=== PATIENT | male | born 2000 | race Caucasian/White ===

== ENCOUNTER 2024-11-23 10:15 | Emergency (ER) | payer MEDICAID ==
[~2024-11-23] VITALS: Ht 177.8 cm; Wt 96.0 kg
[2024-11-23 10:19] VITALS: O2SAT 99
[2024-11-23] MEDS: SODIUM CHLORIDE 0.9% 1,000 ML IV ONE (10:46)
[2024-11-23] MEDS: LORAZEPAM 2MG/ML UD SYRINGE IV NR (10:47)
[2024-11-23] MEDS: LORAZEPAM 2MG/ML INJ IV ONE (10:48)
[2024-11-23 10:51] LABS: BASOPHILS % 0.3 % (0.0-2.0); EOSINOPHILS % 0.1 % (0.0-5.0); HEMATOCRIT. 46.9 % (42.0-52.0); LYMPHOCYTES % 17.3 % (20.0-50.0); MEAN CORPUSCULAR HEMOGLOBIN 29.9 pg (28.0-32.0); MEAN CORPUSCULAR VOLUME 87.9 fL (80.0-94.0); MEAN PLATELET VOLUME 7.4 fl (7.4-10.4); MONOCYTES % 10.5 % (2.0-8.0); NEUTROPHILS % 71.8 % (40.0-76.0); PLATELET 272 x1000/uL (130-400); RED BLOOD CELL COUNT 5.34 mill/uL (4.7-6.1); RED CELL DISTRIBUTION WIDTH 14.5 % (11.6-14.6)
[2024-11-23 11:05] LABS: CHLORIDE 98 mEq/L (98-107); POTASSIUM 3.3 mEq/L (3.5-5.1); SODIUM 136 mEq/L (136-145)
[2024-11-23 11:06] LABS: CALCIUM 9.7 mg/dL (8.7-10.4); CARBON DIOXIDE 21 mEq/L (21-32)
[2024-11-23 11:11] LABS: CREATININE 0.9 mg/dL (0.6-1.3); GLUCOSE 71 mg/dL (70-105); UREA NITROGEN BLOOD 15 mg/dL (9-23)
[2024-11-23 11:47] VITALS: BP 110/70; PULSE 130; RESP 17; TEMP 36.9; O2SAT 97
== END 2024-11-23 13:07 | disposition home or self-care (01) ==
LOC: ER 10:15 → CANBEDREQ 12:57 → ER 13:07
DX: G93.40 Encephalopathy, unspecified (principal)
CPT/HCPCS: 99283; 96374; 96361; 80048; 85025; 36415; J2060; J7030

== ENCOUNTER 2024-11-23 20:09 | Emergency (ER) | payer MEDICAID ==
[~2024-11-23] VITALS: Ht 172.7 cm; Wt 72.0 kg
[2024-11-23 20:10] VITALS: BP 112/76; PULSE 144; RESP 18; TEMP 36.7; O2SAT 99
[2024-11-23 20:43] LABS: BASOPHILS % 0.4 % (0.0-2.0); EOSINOPHILS % 0.3 % (0.0-5.0); HEMATOCRIT. 44.4 % (42.0-52.0); LYMPHOCYTES % 19.2 % (20.0-50.0); MEAN CORPUSCULAR HEMOGLOBIN 29.9 pg (28.0-32.0); MEAN CORPUSCULAR HGB CONC 33.8 g/dL (31.0-37.0); MEAN CORPUSCULAR VOLUME 88.3 fL (80.0-94.0); MONOCYTES % 9.9 % (2.0-8.0); NEUTROPHILS % 70.2 % (40.0-76.0); PLATELET 249 x1000/uL (130-400); RED BLOOD CELL COUNT 5.02 mill/uL (4.7-6.1); RED CELL DISTRIBUTION WIDTH 14.9 % (11.6-14.6)
[2024-11-23 20:51] LABS: CHLORIDE 101 mEq/L (98-107); POTASSIUM 3.4 mEq/L (3.5-5.1); SODIUM 139 mEq/L (136-145)
[2024-11-23 20:52] LABS: CARBON DIOXIDE 21 mEq/L (21-32)
[2024-11-23] MEDS: SODIUM CHLORIDE 0.9% 1,000 ML IV ONE ×2 (20:55→20:58)
[2024-11-23] MEDS: LORAZEPAM 2MG/ML INJ IV ONE (20:56)
[2024-11-23 20:57] LABS: CREATININE 0.8 mg/dL (0.6-1.3); ETHANOL BLOOD < 10 mg/dL (<10); GLUCOSE 80 mg/dL (70-105); UREA NITROGEN BLOOD 15 mg/dL (9-23)
== END 2024-11-23 22:40 | disposition left against medical advice (07) ==
LOC: ER 20:09
DX: R00.2 Palpitations (principal); T43.621A Poisoning by amphetamines, accidental (unintentional), initial encounter; Y92.9 Unspecified place or not applicable
CPT/HCPCS: 80048; 80320; 85025; 36415; 93005; 96360; 99284; J7030; A4606; G0480

== ENCOUNTER 2025-07-04 00:09 | Emergency (ER) | payer MEDICAID ==
[~2025-07-04] VITALS: Ht 175.3 cm; Wt 100.0 kg
[2025-07-04 00:26] VITALS: O2SAT 99
[2025-07-04] MEDS ORDERED: LORAZEPAM 1MG TABLET PO ONE (00:30)
[2025-07-04] MEDS ORDERED: SODIUM CHLORIDE 0.9% 1,000 ML IV ONE (00:30)
[2025-07-04 01:40] VITALS: BP 146/94; PULSE 96; RESP 20; TEMP 37; O2SAT 100
== END 2025-07-04 01:40 | disposition home or self-care (01) ==
LOC: ER 00:09
DX: F15.129 Other stimulant abuse with intoxication, unspecified (principal)
CPT/HCPCS: 71045; 99284; J7030